=== PATIENT | male | born 1985 | race Caucasian/White ===

== ENCOUNTER 2016-06-06 11:43 | Emergency (ER) | payer SELFPAY ==
--- NOTE | 2016-06-06 23:35 | RAD ---
RIGHT FOOT THREE VIEWS: Date: 06-06-16 FINDINGS: No acute fracture was seen. All bones appear intact. The medial sesamoid of the first MTP joint is b ipartite. IMPRESSION: No acute bony findings. POS: HOME
--- NOTE | 2016-06-06 23:35 | RAD ---
RIGHT ANKLE VIEWS: Date: 06-06-16 FINDINGS: No fracture was seen. The joint space appears normal and the articular surfaces are smooth. IMPRESSION: No significant finding. POS: HOME
== END 2016-06-06 12:45 | disposition home or self-care (01) ==
LOC: BURERS 11:43
DX: S93.401A Sprain of unspecified ligament of right ankle, initial encounter (principal); S93.601A Unspecified sprain of right foot, initial encounter; X58.XXXA Exposure to other specified factors, initial encounter
CPT/HCPCS: 99283